=== PATIENT | male | born 1995 | race Caucasian/White ===

== ENCOUNTER 2017-05-19 00:58 | Emergency (ER) | payer OTHER ==
[2017-05-19 01:10] VITALS: O2SAT 98
[2017-05-19] MEDS ORDERED: Zithromax 250 MG TABLET PO ONE (01:12)
[2017-05-19] MEDS ORDERED: MOTRIN 600 MG PO ONE (01:12)
[2017-05-19] MEDS ORDERED: MOTRIN 600 MG ONE (01:15)
[2017-05-19] MEDS ORDERED: Zithromax 250 MG TABLET ONE (01:16)
--- NOTE | 2017-05-19 01:18 | ERPHSYRPT ---
- History of Present Illness Time Seen by Provider: 05/19/17 01:10 Source: patient Exam Limitations: no limitations Patient Subjective Stated Complaint: stabing pain to left ear x 2 hours. no injury no drainage. Triage Nursing Assessment: painful left ear on palpation, no drainage noted. denies injury. no fever. Physician History: FOR THE PAST 3 HOURS PT HAS HAD A LEFT EARACHE; DENIES FEVER, COUGH, HEADACHE. Allergies/Adverse Reactions: No Known Drug Allergies Allergy (Verified 05/19/17 01:10) Hx Tetanus, Diphtheria Vaccination/Date Given: Yes Hx Influenza Vaccination/Date Given: Yes Hx Pneumococcal Vaccination/Date Given: No Immunizations Up to Date: Yes - Review of Systems Constitutional: No Fever Ears, Nose, & Throat: Ear Pain Respiratory: No Cough Neurological: Headache All Other Systems: Reviewed and Negative - Past Medical History Pertinent Past Medical History: No - Past Surgical History Past Surgical History: No Musculoskeletal: Orthopedic Surgery Other Surgical History: FINGER RECONSTRUCTION - Social History Smoking Status: Current every day smoker Exposure to second hand smoke: No Drug Use: none Patient Lives Alone: No - Nursing Vital Signs Nursing Vital Signs: Initial Vital Signs Temperature 97.7 F 05/19/17 01:00 Pulse Rate 87 05/19/17 01:00 Respiratory Rate 18 05/19/17 01:00 Blood Pressure 149/100 05/19/17 01:00 O2 Sat by Pulse Oximetry 98 05/19/17 01:00 Pain Scale Pain Intensity 7 - Physical Exam General Appearance: alert Eye Exam: bilateral eye: PERRL, EOMI Ear Exam: right ear: TM normal, left ear: TM red, TM bulging Nasal Exam: normal inspection Throat Exam: moist mucus membranes, No pharynx normal (PHARYNX ERYTHEMATOUS) Neck Exam: normal inspection Cardiovascular/Respiratory Exam: normal breath sounds, heart sounds normal Abdominal Exam: soft (B.S. NORMAL) Neurologic Exam: alert, cooperative Skin Exam: warm, dry SpO2 Interpretation: normal SpO2: 98 Oxygen Delivery: Room Air - Course Nursing assessment & vital signs reviewed: Yes - Departure Time of Disposition: Departure Disposition: Home Clinical Impression: LOM, PHARYNGITIS Condition: Stable Critical Care Time: No Referrals: KIESHA PORTILLO NP [Primary Care Provider] - Instructions: Otitis Media (Middle Ear Infection) Additional Instructions: FOLLOW UP WITH PRIVATE DOCTOR TOMORROW. Prescriptions: Naproxen [Naprosyn] 500 mg PO [id number] PRN #20 tablet PRN Reason: Pain Azithromycin 250 mg [Zithromax 250 MG TABLET] 250 mg PO ZPACK #6 tablet
[2017-05-19 01:36] VITALS: BP 154/90; PULSE 72
== END 2017-05-19 01:35 | disposition home or self-care (01) ==
LOC: ED 00:58
DX: H66.92 Otitis media, unspecified, left ear (principal); J02.9 Acute pharyngitis, unspecified
CPT/HCPCS: 99283; 99284; A9270-GY